=== PATIENT | male | born 2005 | race Caucasian/White ===

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

== ENCOUNTER 2025-05-21 22:54 | Emergency (ER) | payer OTHER, BC, SELFPAY ==
--- OUTSIDE RECORDS SUMMARY | 2011-04-01 04:15 | XMS_ITS | Continuity of Care Document ---
Author Organization [facility] Address [address] [place] [address] Phone Care Team Providers Care Lens Blocker Name Role Phone Unavailable Unavailable Unavailable Medications Medication Instructions Dosage Effective Dates (start - stop) Status Comments amoxil chewable 250mg two tablets twice daily for ten days - Active Procedures Procedure Date Offic/outpt E&m New Mod Sever 1 Services provided in an urgent care cent er Agt-immunassay Dir Obs; Strep 1 Advance Directives Directive Yes / No Effective Date File Name Resuscitation Not Answered N/A N/A Life Support Not Answered N/A N/A Intubation Not Answered N/A N/A Antibiotics Not Answered N/A N/A IV Fluid Support Not Answered N/A N/A Tube Feed Not Answered N/A N/A Other Directive N/A N/A WARNING:The information contained in this section is historical and is provided for information only and does not constitute a legal document or any assurance that the information is still accurate. Please verify the information with the barrios of the legal document before using it for clinical purposes. Encounters Encounter Description Practice Location Reason(s) For Visit Diagnoses Date Provider Providers Copied on Encounter Offic/outpt E&m New Mod Sever [facility], [address], [place], [place], [id number], tel:[phone] [facility] ear discomfort (chief complaint) No Information 1 No Information Family History Family Member Type Diagnosis Age At Onset No Information Payers Payer name Insurance type Covered libertarian ID Caryl miller(s) [employer] [facility] Sean [facility] [id number] Social History Type Description Quantity Date Captured Comments Alcohol Use Details No Caffeine Use Details Unknown Tobacco Use Status No Information Smoking Status No Information Sex Male Vital Signs Date / Time: Height Weight BMI Pulse Rate Blood Pressure Temperature Respiratory Rate Body Surface Area Head Circumference Head Circ. Percentile Wt./Todd. Percentile BMI percentile Pulse Ox Inhaled Ox 10:29 AM 26.300 kg (58.00 lbs) 98 /min 107/70 mm[Hg] 97.80 F 20 /min 98 % Chief Complaint And Reason For Visit From encounter dated '04/01/2011 10:15'. ear discomfort (chief complaint). Description: The onset was 2 day(s) ago. Duration Constant. Levelof severity is mild-moderate. Location is bilateral ear. There is radiation to none. The patient describes it as aching. He is also experiencing -sore throat. Pertinent negatives include -fever -cough. Two day history of fullnes and pressure in the ears and a sore throat. Denies other sx. Reason For Referral Reason For Referral No Information History Of Present Illness Encounter Date Complaint History Of Prese nt Illness No Information Functional Status Date Functional Assessmen t No Information Instructions Date Instruction Additional Infor mation No Information Assessments Type Assessment Date No Information Patient Care Teams Name Effective Dates (start - stop) Status Members No Information
--- OUTSIDE RECORDS SUMMARY | 2025-05-21 22:57 | XMS_ITS | Patient Health Record ---
Author Organization [facility] Address [address] [facility] [address] [place], [place] [id number] Care Team Providers Care Loom Operator Apprentice Name Role Phone [place] Primary Care Provider [phone] Reason For Referral No Information Social History Tobacco Use: Social History Observation Description Date Details (start date - stop date) Never Smoker NA - NA Tobacco Use/Smoking Question Answer Notes Are you a nonsmoker Alcohol Screen Question Answer Notes Did you have a drink containing alcohol in the p ast year? No Points 0 Interpretation Negative Section Notes: non smoker work Target Problems Problem Type SNOMED Code ICD Code Onset Dates Problem Status W/U Status Risk Notes Problem Generalized anxiety disorder (89276771) Generalized anxiety disorder (F41.1) Active confirmed Problem Allergic rhinitis caused by pollen (disorder) (58481043) Allergic rhinitis due to pollen (J30.1) Active confirmed Plan Of Treatment No Information Medical (General) History Medical History History ICD Code hyperhydrosis Surgical History Surgery Date(Month/Year) none
[2025-05-21 23:00] VITALS: BP 146/71; PULSE 68; RESP 16; TEMP 35.8; O2SAT 98; BMI 26.6
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
== END 2025-05-21 23:56 | disposition home or self-care (01) ==
LOC: ED 23:52
PROVIDERS: Emergency Provider Family Medicine; PCP Registered Nurse
DX: M54.2 Cervicalgia (principal); V43.52XA Car driver injured in collision with other type car in traffic accident, initial encounter
CPT/HCPCS: 99283